=== PATIENT | female | born 1995 | race American Indian/Alaskan Native ===

== ENCOUNTER 2017-08-21 07:51 | Outpatient (CLI) | payer MEDICAID ==
[2017-08-21 08:54] VITALS: BP 106/66
[2017-08-21 09:30] LABS: Amphetamine Screen,Urine PRESUMPTIVE NEGATIVE; Benzodiazepines Screen,Urine PRESUMPTIVE NEGATIVE; Cocaine Screen,Urine PRESUMPTIVE NEGATIVE; Methadone Screen,Urine PRESUMPTIVE NEGATIVE; Opiate Screen,Urine PRESUMPTIVE NEGATIVE
[2017-08-21 09:43] LABS: Cannabinoid Screen,Urine PRESUMPTIVE POSITIVE
--- NOTE | 2017-08-21 14:51 | Ultrasound Report ---
History: Rule out abruption, ZULEMA Findings: Gestation: Single Position: Cephalic Amniotic Fluid: ZULEMA = 16.9 cm Placenta: Posterior Placental Grade: 2 Heart Rate: 135 BPM BIOPHYSICAL PROFILE: 2 - breathing movements 2 - movements 2 - posture and tone 2 - Qualitative amniotic fluid volume 8 - TOTAL SCORE FOR BPP Heart Rate (bpm) 135
== END 2017-08-21 10:42 | disposition home or self-care (01) ==
LOC: TRG 07:51
PROVIDERS: ATTEND Obstetrics & Gynecology
DX: O47.1 False labor at or after 37 completed weeks of gestation (principal); Z3A.37 37 weeks gestation of pregnancy
CPT/HCPCS: 59025; 76815; 76819; 80307